=== PATIENT | female | born 1935 | race Two or more races ===

== ENCOUNTER 2016-02-29 10:20 | Emergency (ER) | payer MEDICARE, MEDICAID ==
[~2016-02-29] VITALS: Ht 160 cm; Wt 61.2 kg
[~2016-02-29 10:20] MED LIST: AMO250C PO; HYDR25TA4 PO; LISI-646 PO; NOR5T PO
[2016-02-29 11:52] LABS: Basophils # (auto) 0 uL; Basophils % (auto) 0.8 % (0.0-2.0); Eosinophils # (auto) 0.2 uL; Hematocrit 36.3 % (36.0-46.0); Lymphocytes % (auto) 36.9 % (10.0-50.0); Mean Corpuscular Hemoglobin 30.3 pg (28.0-32.0); Mean Corpuscular Hgb Conc. 33.1 g/dL (32.0-36.0); Mean Corpuscular Volume 91.7 fL (80.0-100.0); Mean Platelet Volume 8.2 fL (7.4-10.4); Monocytes # (auto) 0.5 uL; Monocytes % (auto) 8.1 % (0.0-12.0); Neutrophils # (auto) 2.8 uL; Neutrophils % (auto) 51.2 % (37.0-80.0); Platelet Count (auto) 236 10^3/uL (140-450); Red Cell Distribution Width 14.9 % (11.6-16.0); White Blood Cell 5.6 10^3/uL (4.4-10.8)
[2016-02-29 12:12] LABS: Albumin 4.4 g/dL (3.4-5.0); BUN/Creatinine Ratio 19.1; Bilirubin, Total 0.5 mg/dL (0.2-1.0); Calcium 8.8 mg/dL (8.5-10.1); Potassium 4.3 mmol/L (3.5-5.1); Total Protein 7.2 g/dL (6.4-8.2)
[2016-02-29 14:59] VITALS: BP 171/80
[2016-02-29] MEDS ORDERED: FAMO-12 PO (15:01)
[2016-02-29] MEDS ORDERED: FLUO-125 PO (15:02)
[2016-02-29] MEDS ORDERED: LOSA100T27 PO (15:02)
[2016-02-29] MEDS ORDERED: CLON0.1T PO (15:03)
[2016-02-29] MEDS ORDERED: HYDR25TA4 PO (15:03)
[2016-02-29] MEDS ORDERED: AMLO5TAB2 PO (15:04)
[2016-02-29] MEDS ORDERED: LEVO112T4 PO (15:04)
[2016-02-29 15:10] LABS: Urine Bilirubin Negative (Negative); Urine Blood Negative /uL (Negative); Urine Color Colorless (Yellow); Urine Glucose Normal (Normal); Urine Ketone Negative (Negative); Urine Nitrite Negative (Negative); Urine RBC 1 /hpf (0 - 4); Urine Urobilinogen Normal (Negative); Urine pH 6.5 (5.0-8.0)
[2016-02-29] MEDS ORDERED: cloNIDine HCL 0.1 MG TAB PO ONE (15:15)
== END 2016-02-29 16:25 | disposition home or self-care (01) ==
LOC: ER 10:20
DX: S50.01XA Contusion of right elbow, initial encounter (principal); S40.011A Contusion of right shoulder, initial encounter; S20.219A Contusion of unspecified front wall of thorax, initial encounter; I10 Essential (primary) hypertension; E07.9 Disorder of thyroid, unspecified; F32.9 Major depressive disorder, single episode, unspecified; R04.0 Epistaxis; W18.39XA Other fall on same level, initial encounter; Y93.89 Activity, other specified; Y92.89 Other specified places as the place of occurrence of the external cause; Y99.8 Other external cause status
CPT/HCPCS: 36415; 70450; 71010; 73070; 74176; 80053; 81001; 85025; 93005; 94761

== ENCOUNTER 2017-06-25 13:29 | Inpatient (IN) | payer MEDICARE, MEDICAID ==
[~2017-06-25] VITALS: Ht 162.6 cm; Wt 71.2 kg
[~2017-06-25 13:29] MED LIST changes: +AMLO5TAB2 PO; -AMO250C PO; +CLON0.1T PO; +FAMO-12 PO; +FLUO-125 PO; +LEVO112T4 PO; -LISI-646 PO; +LOSA100T27 PO; -NOR5T PO
[2017-06-25] MEDS ORDERED: SODIUM CHLORIDE 0.9% 1,000 ML IV ONE (14:38)
[2017-06-25 14:39] LABS: Basophils # (auto) 0.1 uL; Basophils % (auto) 0.9 % (0.0-2.0); Eosinophils # (auto) 0.1 uL; Eosinophils % (auto) 0.8 % (0.0-7.0); Hematocrit 39.7 % (36.0-46.0); Hemoglobin 13.1 g/dL (12.2-16.2); Lymphocytes # (auto) 2.8 uL; Lymphocytes % (auto) 35.8 % (10.0-50.0); Mean Corpuscular Hemoglobin 30.1 pg (28.0-32.0); Mean Corpuscular Hgb Conc. 33.1 g/dL (32.0-36.0); Mean Corpuscular Volume 91.1 fL (80.0-100.0); Monocytes # (auto) 0.8 uL; Monocytes % (auto) 9.6 % (0.0-12.0); Neutrophils # (auto) 4.1 uL; Neutrophils % (auto) 52.9 % (37.0-80.0); Nucleated Red Blood Cells % 0.1 %; Platelet Count (auto) 233 10^3/uL (140-450); Red Blood Cells 4.35 10^6/uL (4.0-5.20); Red Cell Distribution Width 14.6 % (11.8-14.3); White Blood Cell 7.8 10^3/uL (4.4-10.8)
[2017-06-25] MEDS ORDERED: LABETALOL HCL 5 MG/ML ML 20ML VIAL IV ONE ×2 (14:40→14:45)
[2017-06-25] MEDS ORDERED: ONDANSETRON HCL 4 MG/2 ML VIAL IV ONE ×2 (14:45→16:00)
[2017-06-25 14:58] LABS: Albumin 4.7 g/dL (3.4-5.0); BUN/Creatinine Ratio 15.4; Bilirubin, Total 0.5 mg/dL (0.2-1.0); Calcium 9.2 mg/dL (8.5-10.1); Potassium 4.4 mmol/L (3.5-5.1); Total Protein 8.3 g/dL (6.4-8.2)
[2017-06-25 15:58] LABS: Urine Bacteria NONE SEEN /hpf (None Seen); Urine Blood TRACE /uL (Negative); Urine Hyaline Cast FEW /lpf (0 - 2); Urine Specific Gravity 1.011 (1.001-1.035); Urine WBC 18 /hpf (0 - 5)
[2017-06-25] MEDS ORDERED: MORPHINE SULFATE 8mg/ml INJ SDV IV ONE (16:00)
[2017-06-25 16:15] LABS: Amylase 57 U/L (25-115); Lipase 181 U/L (73-393)
[2017-06-25] MEDS ORDERED: LORazepam 0.5 MG TAB PO PRN (16:30)
[2017-06-25] MEDS ORDERED: LABETALOL HCL 5 MG/ML ML 20ML VIAL IV PRN (16:30)
[2017-06-25] MEDS ORDERED: NITROGLYCERIN 0.4 MG SL TAB SL PRN (16:30)
[2017-06-25] MEDS ORDERED: cefTRIAXone 1GM/10ml IVPUSH 10 ML IV ONE (16:30)
[2017-06-25] MEDS ORDERED: MORPHINE SULFATE 8mg/ml INJ SDV IV PRN ×2 (16:30)
[2017-06-25] MEDS: SODIUM CHLORIDE 0.9% 1,000 ML IV SCH (17:11)
[2017-06-25] MEDS ORDERED: diphenhdrAMINE HCL 50 MG/1 ML VL ONE (18:13)
[2017-06-25] MEDS ORDERED: diphenhdrAMINE HCL 50 MG/1 ML VL IV ONE (18:15)
[2017-06-25] MEDS ORDERED: VALE530C2 PO (18:56)
[2017-06-25] MEDS ORDERED: CLON0.1T PO (18:56)
[2017-06-25] MEDS ORDERED: ASPI81TA27 PO (18:56)
[2017-06-25] MEDS ORDERED: RANITAB32 PO (18:56)
[2017-06-25] MEDS ORDERED: ATOR10TA PO (18:56)
[2017-06-25] MEDS ORDERED: CHOL20007 PO (18:56)
[2017-06-25] MEDS ORDERED: MONT10TA34 PO (18:56)
[2017-06-25] MEDS: LOSARTAN POTASSIUM 50 MG TAB PO SCH (21:40)
[2017-06-25] MEDS: amLODIPine BESYLATE 5 MG TAB PO SCH (21:40)
[2017-06-25] MEDS: FLUoxetine HCL 20 MG CAP PO SCH (21:41)
[2017-06-25] MEDS: TEMAZEPAM 15 MG CAP PO PRN (21:49)
[2017-06-25 21:51] VITALS: BP 146/73
[2017-06-25] MEDS: HCTZ 25 MG TAB PO SCH (22:00)
[2017-06-25] MEDS: cloNIDine HCL 0.1 MG TAB PO SCH (22:00)
[2017-06-26] MEDS: SODIUM CHLORIDE 0.9% 1,000 ML IV SCH ×2 (03:48→15:02)
[2017-06-26 05:00] VITALS: BP 150/69
[2017-06-26] MEDS: LEVOTHYROXINE SODIUM 112 MCG TAB PO SCH (06:54)
[2017-06-26 06:56] LABS: Albumin 3.7 g/dL (3.4-5.0); Calcium 8.6 mg/dL (8.5-10.1)
[2017-06-26 06:59] LABS: BUN/Creatinine Ratio 17.7
[2017-06-26 07:02] LABS: Bilirubin, Total 0.4 mg/dL (0.2-1.0)
[2017-06-26 09:00] VITALS: BP 159/70
[2017-06-26] MEDS ORDERED: cefTRIAXone 1GM/10ml IVPUSH 10 ML IV SCH (09:00)
[2017-06-26] MEDS: LOSARTAN POTASSIUM 50 MG TAB PO SCH (09:27)
[2017-06-26] MEDS: cloNIDine HCL 0.1 MG TAB PO SCH ×2 (09:28→22:00)
[2017-06-26] MEDS: amLODIPine BESYLATE 5 MG TAB PO SCH ×2 (09:28→22:01)
[2017-06-26] MEDS: FLUoxetine HCL 20 MG CAP PO SCH ×2 (09:28→21:59)
[2017-06-26] MEDS: hydrOXYzine HCL 10 MG TAB PO PRN ×2 (09:29→18:51)
[2017-06-26] MEDS: HCTZ 25 MG TAB PO SCH (09:30)
[2017-06-26] MEDS ORDERED: PANTOPRAZOLE 40 MG TAB PO SCH (10:00)
[2017-06-26] MEDS: HYDROcodone-ACET 5/325MG TAB PO PRN ×2 (12:01→18:51)
[2017-06-26] MEDS ORDERED: LACTULOSE 20Gm/30ML SOLN PO ONE (12:45)
[2017-06-26] MEDS ORDERED: LEVOFLOXACIN 500MG 100 ML IV ONE (14:15)
[2017-06-26 17:00] VITALS: BP 126/65
[2017-06-26] MEDS: SIMETHICONE 40 MG/0.6 ML ORAL DROP PO SCH ×2 (18:45→22:03)
[2017-06-26] MEDS: PANTOPRAZOLE 40 MG TAB PO SCH (21:59)
[2017-06-26] MEDS: LACTULOSE 20Gm/30ML SOLN PO SCH (21:59)
[2017-06-26 22:00] VITALS: BP 132/77
[2017-06-26] MEDS: TEMAZEPAM 15 MG CAP PO PRN (22:26)
[2017-06-27] MEDS: SODIUM CHLORIDE 0.9% 1,000 ML IV SCH ×2 (04:05→16:39)
[2017-06-27 05:00] VITALS: BP 148/86
[2017-06-27] MEDS: LEVOTHYROXINE SODIUM 112 MCG TAB PO SCH (06:03)
[2017-06-27] MEDS: SIMETHICONE 40 MG/0.6 ML ORAL DROP PO SCH ×4 (06:03→21:52)
[2017-06-27] MEDS: HYDROcodone-ACET 5/325MG TAB PO PRN ×3 (06:03→18:41)
[2017-06-27 06:10] LABS: Calcium 8.2 mg/dL (8.5-10.1); Potassium 4.4 mmol/L (3.5-5.1)
[2017-06-27 06:13] LABS: BUN/Creatinine Ratio 15.1
[2017-06-27 09:00] VITALS: BP 168/75
[2017-06-27] MEDS: LEVOFLOXACIN 500MG 100 ML IV SCH (10:15)
[2017-06-27] MEDS: LACTULOSE 20Gm/30ML SOLN PO SCH ×2 (10:17→21:53)
[2017-06-27] MEDS: FLUoxetine HCL 20 MG CAP PO SCH ×2 (10:17→21:51)
[2017-06-27] MEDS: amLODIPine BESYLATE 5 MG TAB PO SCH ×2 (10:18→21:52)
[2017-06-27] MEDS: cloNIDine HCL 0.1 MG TAB PO SCH ×2 (10:18→21:52)
[2017-06-27] MEDS: PANTOPRAZOLE 40 MG TAB PO SCH (10:19)
[2017-06-27] MEDS: PROMETHAZINE HCL 25 MG/ML 1ML IV PRN (12:42)
[2017-06-27 13:00] VITALS: BP 125/53
[2017-06-27 17:31] VITALS: BP 138/71
[2017-06-27] MEDS: TEMAZEPAM 15 MG CAP PO PRN (21:54)
[2017-06-27 23:48] VITALS: BP 142/55
[2017-06-28] VITALS (7 sets, daily range): BP systolic 130–162; BP diastolic 49–68
[2017-06-28] MEDS: SODIUM CHLORIDE 0.9% 1,000 ML IV SCH ×2 (05:05→17:50)
[2017-06-28] MEDS: SIMETHICONE 40 MG/0.6 ML ORAL DROP PO SCH ×4 (06:13→21:44)
[2017-06-28] MEDS: LEVOTHYROXINE SODIUM 112 MCG TAB PO SCH (06:13)
[2017-06-28 07:05] LABS: Basophils # (auto) 0 uL; Basophils % (auto) 0.9 % (0.0-2.0); Eosinophils # (auto) 0.2 uL; Eosinophils % (auto) 3.7 % (0.0-7.0); Hematocrit 34.3 % (36.0-46.0); Hemoglobin 11.4 g/dL (12.2-16.2); Lymphocytes # (auto) 1.5 uL; Lymphocytes % (auto) 32.3 % (10.0-50.0); Mean Corpuscular Hemoglobin 30.4 pg (28.0-32.0); Mean Corpuscular Hgb Conc. 33.2 g/dL (32.0-36.0); Mean Corpuscular Volume 91.5 fL (80.0-100.0); Monocytes # (auto) 0.5 uL; Neutrophils # (auto) 2.5 uL; Neutrophils % (auto) 53.1 % (37.0-80.0); Nucleated Red Blood Cells % 0.2 %; Platelet Count (auto) 189 10^3/uL (140-450); Red Blood Cells 3.75 10^6/uL (4.0-5.20); Red Cell Distribution Width 14.5 % (11.8-14.3); White Blood Cell 4.7 10^3/uL (4.4-10.8)
[2017-06-28 07:22] LABS: Albumin 3.4 g/dL (3.4-5.0); BUN/Creatinine Ratio 17.1; Bilirubin, Total 0.3 mg/dL (0.2-1.0); Calcium 8.6 mg/dL (8.5-10.1); Potassium 3.9 mmol/L (3.5-5.1); Total Protein 6.7 g/dL (6.4-8.2)
[2017-06-28] MEDS: HYDROcodone-ACET 5/325MG TAB PO PRN ×2 (08:04→14:31)
[2017-06-28] MEDS: amLODIPine BESYLATE 5 MG TAB PO SCH ×2 (09:34→21:43)
[2017-06-28] MEDS: cloNIDine HCL 0.1 MG TAB PO SCH ×2 (09:35→21:43)
[2017-06-28] MEDS: PANTOPRAZOLE 40 MG/10 ML VIAL IV SCH (09:35)
[2017-06-28] MEDS: LACTULOSE 20Gm/30ML SOLN PO SCH (09:35)
[2017-06-28] MEDS: FLUoxetine HCL 20 MG CAP PO SCH ×2 (09:35→21:43)
[2017-06-28] MEDS: LEVOFLOXACIN 500MG 100 ML IV SCH (09:36)
[2017-06-28 19:47] LABS: INR 0.95 (0.9-1.15); Partial Thromboplastin Time 26.9 sec (22.64-33.71); Prothrombin Time 10.3 sec (9.37-12.3)
[2017-06-28] MEDS: TEMAZEPAM 15 MG CAP PO PRN (21:48)
[2017-06-29] MEDS: SIMETHICONE 40 MG/0.6 ML ORAL DROP PO SCH ×4 (06:00→21:48)
[2017-06-29 06:01] VITALS: BP 124/56
[2017-06-29] MEDS: LEVOTHYROXINE SODIUM 112 MCG TAB PO SCH (06:48)
[2017-06-29 07:00] LABS: Basophils # (auto) 0 uL; Basophils % (auto) 1.1 % (0.0-2.0); Eosinophils # (auto) 0.2 uL; Eosinophils % (auto) 4.1 % (0.0-7.0); Hematocrit 32.7 % (36.0-46.0); Hemoglobin 11.2 g/dL (12.2-16.2); Lymphocytes # (auto) 1.5 uL; Lymphocytes % (auto) 35.2 % (10.0-50.0); Mean Corpuscular Hemoglobin 30.7 pg (28.0-32.0); Mean Corpuscular Hgb Conc. 34.2 g/dL (32.0-36.0); Monocytes # (auto) 0.5 uL; Monocytes % (auto) 10.6 % (0.0-12.0); Neutrophils # (auto) 2.1 uL; Nucleated Red Blood Cells % 0.1 %; Platelet Count (auto) 195 10^3/uL (140-450); Red Blood Cells 3.63 10^6/uL (4.0-5.20); White Blood Cell 4.3 10^3/uL (4.4-10.8)
[2017-06-29 07:05] LABS: BUN/Creatinine Ratio 21.2; Calcium 8.9 mg/dL (8.5-10.1); Potassium 3.9 mmol/L (3.5-5.1)
[2017-06-29] MEDS ORDERED: fentaNYL CITRATE 100 MCG/2 ML VL ONE (08:34)
[2017-06-29] MEDS ORDERED: diphenhdrAMINE HCL 50 MG/1 ML VL ONE (08:34)
[2017-06-29] MEDS ORDERED: MIDAZOLAM HCL 5 MG/ML-1ML VIAL ONE (08:34)
[2017-06-29] MEDS ORDERED: LIDOCAINE VISCOUS 2% 15ML UD ONE (08:34)
[2017-06-29 09:00] VITALS: BP 152/68
[2017-06-29] MEDS: FLUoxetine HCL 20 MG CAP PO SCH ×2 (10:00→21:46)
[2017-06-29] MEDS: cloNIDine HCL 0.1 MG TAB PO SCH ×2 (10:29→21:48)
[2017-06-29] MEDS: PANTOPRAZOLE 40 MG/10 ML VIAL IV SCH (10:30)
[2017-06-29] MEDS: SODIUM CHLORIDE 0.9% 1,000 ML IV SCH ×2 (10:30→21:48)
[2017-06-29] MEDS: amLODIPine BESYLATE 5 MG TAB PO SCH ×2 (10:30→21:47)
[2017-06-29] MEDS ORDERED: AMPICILLIN INJ 1 GM in SODIUM CHL 0.9% 50 ML IV SCH (12:00)
[2017-06-29 13:00] VITALS: BP 138/71
[2017-06-29] MEDS: AMPICILLIN INJ 1 GM in SODIUM CHL 0.9% 50 ML IV SCH ×2 (14:59→22:42)
[2017-06-29] MEDS ORDERED: LACTULOSE 20Gm/30ML SOLN PO ONE (15:30)
[2017-06-29 17:00] VITALS: BP 138/80
[2017-06-29] MEDS: LACTULOSE 20Gm/30ML SOLN PO SCH (21:48)
[2017-06-29] MEDS: TEMAZEPAM 15 MG CAP PO PRN (21:49)
[2017-06-29 22:00] VITALS: BP 167/32
[2017-06-29] MEDS ORDERED: BISACODYL 10 MG RECT SUPP PR PRN (22:00)
[2017-06-30] MEDS: AMPICILLIN INJ 1 GM in SODIUM CHL 0.9% 50 ML IV SCH ×4 (02:45→20:40)
[2017-06-30 05:30] VITALS: BP 145/60
[2017-06-30] MEDS: SIMETHICONE 40 MG/0.6 ML ORAL DROP PO SCH ×4 (05:44→21:42)
[2017-06-30] MEDS: LEVOTHYROXINE SODIUM 112 MCG TAB PO SCH (05:45)
[2017-06-30 09:00] VITALS: BP 147/90
[2017-06-30] MEDS: LACTULOSE 20Gm/30ML SOLN PO SCH ×2 (09:03→17:09)
[2017-06-30] MEDS: FLUoxetine HCL 20 MG CAP PO SCH (09:03)
[2017-06-30] MEDS: cloNIDine HCL 0.1 MG TAB PO SCH ×2 (09:04→21:43)
[2017-06-30] MEDS: PANTOPRAZOLE 40 MG/10 ML VIAL IV SCH (09:05)
[2017-06-30] MEDS: amLODIPine BESYLATE 5 MG TAB PO SCH ×2 (09:05→21:42)
[2017-06-30] MEDS: PROMETHAZINE HCL 25 MG/ML 1ML IV PRN (11:20)
[2017-06-30 12:00] VITALS: BP 149/91
[2017-06-30 17:00] VITALS: BP 159/74
[2017-06-30] MEDS: TEMAZEPAM 15 MG CAP PO PRN (21:42)
[2017-06-30 22:00] VITALS: BP 144/78
[2017-07-01] MEDS: LACTULOSE 20Gm/30ML SOLN PO SCH ×3 (02:00→17:09)
[2017-07-01] MEDS: AMPICILLIN INJ 1 GM in SODIUM CHL 0.9% 50 ML IV SCH ×4 (03:22→21:07)
[2017-07-01 05:30] VITALS: BP 141/64
[2017-07-01] MEDS: SIMETHICONE 40 MG/0.6 ML ORAL DROP PO SCH ×4 (06:31→21:20)
[2017-07-01] MEDS: LEVOTHYROXINE SODIUM 112 MCG TAB PO SCH (06:31)
[2017-07-01 08:53] VITALS: BP 166/61
[2017-07-01] MEDS ORDERED: MAGNESIUM CITRATE SOLUTION 300 ML BTL PO ONE (09:15)
[2017-07-01] MEDS: ACETAMINOPHEN 500 MG TAB PO PRN ×2 (09:45→21:07)
[2017-07-01] MEDS: cloNIDine HCL 0.1 MG TAB PO SCH ×2 (09:45→21:21)
[2017-07-01] MEDS: amLODIPine BESYLATE 5 MG TAB PO SCH ×2 (09:46→21:21)
[2017-07-01] MEDS: FLUoxetine HCL 20 MG CAP PO SCH (09:47)
[2017-07-01] MEDS ORDERED: PANTOPRAZOLE 40 MG TAB PO SCH (10:00)
[2017-07-01] MEDS: PROMETHAZINE HCL 25 MG/ML 1ML IV PRN (12:08)
[2017-07-01 12:41] VITALS: BP 133/76
[2017-07-01 17:00] VITALS: BP 152/54
[2017-07-01] MEDS: SUCRALFATE 1 GM/10 ML ORAL SUSP PO SCH ×2 (17:08→21:20)
[2017-07-01] MEDS: PANTOPRAZOLE 40 MG TAB PO SCH (21:21)
[2017-07-01] MEDS: TEMAZEPAM 15 MG CAP PO PRN (21:22)
[2017-07-01 22:00] VITALS: BP 142/60
[2017-07-02] MEDS: LACTULOSE 20Gm/30ML SOLN PO SCH ×3 (02:00→18:00)
[2017-07-02] MEDS: AMPICILLIN INJ 1 GM in SODIUM CHL 0.9% 50 ML IV SCH ×4 (02:46→23:32)
[2017-07-02 05:41] VITALS: BP 145/70
[2017-07-02] MEDS: SIMETHICONE 40 MG/0.6 ML ORAL DROP PO SCH ×2 (06:00→11:04)
[2017-07-02] MEDS: LEVOTHYROXINE SODIUM 112 MCG TAB PO SCH (06:11)
[2017-07-02] MEDS: SUCRALFATE 1 GM/10 ML ORAL SUSP PO SCH ×2 (07:00→11:03)
[2017-07-02] MEDS ORDERED: ADENOSINE 6 MG/2 ML INJ IV ONE (07:10)
[2017-07-02] MEDS: FLUoxetine HCL 20 MG CAP PO SCH (11:02)
[2017-07-02] MEDS: cloNIDine HCL 0.1 MG TAB PO SCH ×2 (11:02→22:39)
[2017-07-02] MEDS: PANTOPRAZOLE 40 MG TAB PO SCH (11:02)
[2017-07-02] MEDS: amLODIPine BESYLATE 5 MG TAB PO SCH ×2 (11:02→22:40)
[2017-07-02] MEDS: PROMETHAZINE HCL 25 MG/ML 1ML IV PRN (11:30)
[2017-07-02 13:00] VITALS: BP 153/50
[2017-07-02] MEDS: SOD CHL 0.9%/ KCL 20MEQ 1,000 ML IV SCH (14:25)
[2017-07-02] MEDS: traMADol HCL 50 MG TAB PO PRN ×2 (14:32→22:39)
[2017-07-02 17:00] VITALS: BP 133/59
[2017-07-02 22:00] VITALS: BP 124/82
[2017-07-02] MEDS: TEMAZEPAM 15 MG CAP PO PRN (22:40)
[2017-07-02 23:32] VITALS: BP 134/62
[2017-07-02 23:47] VITALS: BP 129/55
[2017-07-03] MEDS: LACTULOSE 20Gm/30ML SOLN PO SCH ×3 (02:00→18:00)
[2017-07-03] MEDS: AMPICILLIN INJ 1 GM in SODIUM CHL 0.9% 50 ML IV SCH ×4 (03:00→21:45)
[2017-07-03 05:30] VITALS: BP 140/71
[2017-07-03] MEDS: LEVOTHYROXINE SODIUM 112 MCG TAB PO SCH (06:17)
[2017-07-03 06:20] LABS: INR 0.95 (0.9-1.15); Partial Thromboplastin Time 26.5 sec (22.64-33.71); Prothrombin Time 10.3 sec (9.37-12.3)
[2017-07-03 06:28] LABS: Basophils # (auto) 0 uL; Basophils % (auto) 0.9 % (0.0-2.0); Eosinophils # (auto) 0.2 uL; Hematocrit 31.9 % (36.0-46.0); Hemoglobin 10.9 g/dL (12.2-16.2); Lymphocytes # (auto) 1.6 uL; Lymphocytes % (auto) 39.3 % (10.0-50.0); Mean Corpuscular Hemoglobin 30.8 pg (28.0-32.0); Mean Corpuscular Hgb Conc. 34.1 g/dL (32.0-36.0); Mean Corpuscular Volume 90.5 fL (80.0-100.0); Monocytes # (auto) 0.5 uL; Monocytes % (auto) 12.2 % (0.0-12.0); Neutrophils # (auto) 1.8 uL; Neutrophils % (auto) 43.6 % (37.0-80.0); Platelet Count (auto) 194 10^3/uL (140-450); Red Blood Cells 3.53 10^6/uL (4.0-5.20); Red Cell Distribution Width 14.2 % (11.8-14.3); White Blood Cell 4.1 10^3/uL (4.4-10.8)
[2017-07-03 06:40] LABS: Albumin 3.1 g/dL (3.4-5.0); BUN/Creatinine Ratio 17.8; Calcium 8.6 mg/dL (8.5-10.1); Potassium 4.3 mmol/L (3.5-5.1)
[2017-07-03 06:52] LABS: Bilirubin, Total 0.3 mg/dL (0.2-1.0); Total Protein 6.4 g/dL (6.4-8.2)
[2017-07-03] MEDS: SOD CHL 0.9%/ KCL 20MEQ 1,000 ML IV SCH (08:42)
[2017-07-03 09:00] VITALS: BP 125/64
[2017-07-03] MEDS: cloNIDine HCL 0.1 MG TAB PO SCH ×2 (09:49→21:46)
[2017-07-03] MEDS: amLODIPine BESYLATE 5 MG TAB PO SCH ×2 (09:49→21:47)
[2017-07-03] MEDS: PANTOPRAZOLE 40 MG TAB PO SCH (09:50)
[2017-07-03] MEDS: FLUoxetine HCL 20 MG CAP PO SCH (09:50)
[2017-07-03 12:55] VITALS: BP 146/59
[2017-07-03] MEDS ORDERED: LABETALOL HCL 5 MG/ML ML 20ML VIAL IV PRN (13:50)
[2017-07-03] MEDS ORDERED: NEOSTIGMINE 1 MG/ML INJ (10mg/10ML VIAL) IV ONE (13:55)
[2017-07-03] MEDS ORDERED: ETOMIDATE (2MG/ML) 20ML VIAL IV ONE (13:55)
[2017-07-03] MEDS ORDERED: ROCURONIUM 10MG/ML 10ML VIAL IV ONE (13:55)
[2017-07-03] MEDS ORDERED: GLYCOPYRROLATE 0.2 MG/ML 1ML VIAL IV ONE (13:55)
[2017-07-03] MEDS ORDERED: LEVOFLOXACIN 500MG 100 ML IV ONE (14:01)
[2017-07-03] MEDS ORDERED: MEPERIDINE HCL (50 MG/ML) 1 ML VIAL ONE (14:05)
[2017-07-03] MEDS ORDERED: MIDAZOLAM HCL 1MG/1ML-2 ML VIAL ONE (14:05)
[2017-07-03] MEDS ORDERED: fentaNYL CITRATE 100 MCG/2 ML VL ONE (14:05)
[2017-07-03] MEDS ORDERED: PROPOFOL 10 MG/ML 20 ML IV ONE (14:10)
[2017-07-03] MEDS ORDERED: DEXAMETHASONE SOD PHOS 10MG/1ML VIAL INJ ONE (14:10)
[2017-07-03] MEDS ORDERED: ePHEDrine SULFATE 50 MG/ML AMP IV PRN (14:30)
[2017-07-03] MEDS ORDERED: MORPHINE SULFATE 4 MG/ML SYR/VIAL IV PRN (14:30)
[2017-07-03] MEDS ORDERED: ONDANSETRON HCL 4 MG/2 ML VIAL IV ONE (14:30)
[2017-07-03] MEDS ORDERED: KETOROLAC TROMETH 30 MG/ML 1ML VIAL IV ONE (14:30)
[2017-07-03] MEDS ORDERED: HYDROmorphone HCL 2 MG/ML VL IV PRN (14:30)
[2017-07-03] MEDS ORDERED: MIDAZOLAM HCL 1MG/1ML-2 ML VIAL IV PRN (14:30)
[2017-07-03] MEDS: LABETALOL HCL 5 MG/ML 4ML SYRINGE IV PRN ×2 (15:52→15:59)
[2017-07-03] MEDS ORDERED: MORPHINE SULFATE 4 MG/ML SYR/VIAL IV ONE (16:00)
[2017-07-03] MEDS ORDERED: ONDANSETRON HCL 4 MG/2 ML VIAL ONE (16:30)
[2017-07-03 17:20] VITALS: BP 133/68
[2017-07-03] MEDS: traMADol HCL 50 MG TAB PO PRN (19:41)
[2017-07-03] MEDS: TEMAZEPAM 15 MG CAP PO PRN (21:47)
[2017-07-03 22:00] VITALS: BP 124/60
[2017-07-04] MEDS: LACTULOSE 20Gm/30ML SOLN PO SCH ×3 (03:21→17:50)
[2017-07-04] MEDS: AMPICILLIN INJ 1 GM in SODIUM CHL 0.9% 50 ML IV SCH ×4 (03:22→21:50)
[2017-07-04] MEDS: SOD CHL 0.9%/ KCL 20MEQ 1,000 ML IV SCH ×2 (03:23→23:30)
[2017-07-04 05:00] VITALS: BP 119/53
[2017-07-04] MEDS: LEVOTHYROXINE SODIUM 112 MCG TAB PO SCH (06:57)
[2017-07-04 08:03] VITALS: BP 123/50
[2017-07-04] MEDS: FLUoxetine HCL 20 MG CAP PO SCH (09:21)
[2017-07-04] MEDS: PANTOPRAZOLE 40 MG TAB PO SCH (09:21)
[2017-07-04] MEDS: traMADol HCL 50 MG TAB PO PRN ×3 (09:21→21:50)
[2017-07-04] MEDS: cloNIDine HCL 0.1 MG TAB PO SCH ×3 (10:00→21:53)
[2017-07-04] MEDS ORDERED: TEMAZEPAM 15 MG CAP PO PRN (10:30)
[2017-07-04] MEDS ORDERED: LORazepam 0.5 MG TAB PO PRN (10:30)
[2017-07-04 12:57] VITALS: BP 117/56
[2017-07-04 17:06] VITALS: BP 146/67
[2017-07-04 22:00] VITALS: BP 146/69
[2017-07-05] MEDS: LACTULOSE 20Gm/30ML SOLN PO SCH ×2 (01:38→10:31)
[2017-07-05] MEDS: AMPICILLIN INJ 1 GM in SODIUM CHL 0.9% 50 ML IV SCH ×2 (03:01→10:33)
[2017-07-05 05:00] VITALS: BP 159/69
[2017-07-05] MEDS: LEVOTHYROXINE SODIUM 112 MCG TAB PO SCH (06:44)
[2017-07-05 07:12] LABS: Basophils # (auto) 0 uL; Basophils % (auto) 0.1 % (0.0-2.0); Eosinophils # (auto) 0 uL; Hematocrit 29.7 % (36.0-46.0); Hemoglobin 10.2 g/dL (12.2-16.2); Lymphocytes # (auto) 1.1 uL; Lymphocytes % (auto) 10.5 % (10.0-50.0); Mean Corpuscular Hemoglobin 30.9 pg (28.0-32.0); Mean Corpuscular Hgb Conc. 34.2 g/dL (32.0-36.0); Mean Corpuscular Volume 90.5 fL (80.0-100.0); Monocytes # (auto) 0.7 uL; Monocytes % (auto) 6.5 % (0.0-12.0); Neutrophils # (auto) 8.7 uL; Neutrophils % (auto) 82.9 % (37.0-80.0); Platelet Count (auto) 179 10^3/uL (140-450); Red Blood Cells 3.29 10^6/uL (4.0-5.20); Red Cell Distribution Width 14.6 % (11.8-14.3); White Blood Cell 10.5 10^3/uL (4.4-10.8)
[2017-07-05 07:23] LABS: BUN/Creatinine Ratio 21.4; Calcium 8.4 mg/dL (8.5-10.1); Potassium 4.6 mmol/L (3.5-5.1)
[2017-07-05 09:00] VITALS: BP 164/73
[2017-07-05] MEDS ORDERED: amLODIPine BESYLATE 5 MG TAB PO SCH (10:00)
[2017-07-05] MEDS ORDERED: AML5T PO (10:23)
[2017-07-05] MEDS ORDERED: PANT40T PO (10:23)
[2017-07-05] MEDS: FLUoxetine HCL 20 MG CAP PO SCH (10:31)
[2017-07-05] MEDS: PANTOPRAZOLE 40 MG TAB PO SCH (10:32)
[2017-07-05] MEDS: cloNIDine HCL 0.1 MG TAB PO SCH (10:32)
[2017-07-05 10:59] VITALS: BP 164/73
[2017-07-05] MEDS: ACETAMINOPHEN 500 MG TAB PO PRN (11:45)
[2017-07-05 12:38] VITALS: BP 179/72
== END 2017-07-05 15:55 | disposition home or self-care (01) | DRG 263 ==
LOC: ER 13:30 → TELE-WESTW 13:31 → WEST WING 06-30 12:16
PROVIDERS: ADMIT Internal Medicine; ATTEND Internal Medicine
PROC: 0DB68ZX Excision of Stomach, Via Natural or Artificial Opening Endoscopic, Diagnostic (ICD-10-PCS; principal; 2017-06-29 12:59)
PROC: 0FT44ZZ Resection of Gallbladder, Percutaneous Endoscopic Approach (ICD-10-PCS; 2017-07-03)
DX: K82.8 Other specified diseases of gallbladder (principal); N17.0 Acute kidney failure with tubular necrosis; K92.2 Gastrointestinal hemorrhage, unspecified; N39.0 Urinary tract infection, site not specified; K44.9 Diaphragmatic hernia without obstruction or gangrene; N18.3 Chronic kidney disease, stage 3 (moderate); K21.9 Gastro-esophageal reflux disease without esophagitis; K58.9 Irritable bowel syndrome, unspecified; B95.4 Other streptococcus as the cause of diseases classified elsewhere; E03.9 Hypothyroidism, unspecified; E78.5 Hyperlipidemia, unspecified; F32.9 Major depressive disorder, single episode, unspecified; I25.10 Atherosclerotic heart disease of native coronary artery without angina pectoris; E86.0 Dehydration; F41.9 Anxiety disorder, unspecified; I13.10 Hypertensive heart and chronic kidney disease without heart failure, with stage 1 through stage 4 chronic kidney disease, or unspecified chronic kidney disease; I45.10 Unspecified right bundle-branch block; I70.0 Atherosclerosis of aorta; J45.909 Unspecified asthma, uncomplicated; K81.1 Chronic cholecystitis; M51.37 Other intervertebral disc degeneration, lumbosacral region; Z79.899 Other long term (current) drug therapy; Z82.49 Family history of ischemic heart disease and other diseases of the circulatory system; Z86.73 Personal history of transient ischemic attack (TIA), and cerebral infarction without residual deficits; Z98.49 Cataract extraction status, unspecified eye; Z87.891 Personal history of nicotine dependence
CPT/HCPCS: 36415; 70450; 71045; 72125; 73560; 74176; 76705; 78226; 80048; 80053; 81001; 82150; 82247; 83690; 84443; 85025; 85610; 85730; 86850; 86900; 86901; 87086; 93005; 93306; 94761; 96361; 96374; 96375; C9113; J0153; J1100; J1956; J2250; J2270; J2405; J2704

== ENCOUNTER 2018-09-07 12:04 | Emergency (ER) | payer MEDICARE, MEDICAID ==
[~2018-09-07] VITALS: Ht 162.6 cm; Wt 61.7 kg
[~2018-09-07 12:04] MED LIST changes: +AML5T PO; -AMLO5TAB2 PO; +ASPI81TA27 PO; +ATOR10TA PO; +CHOL20007 PO; -FAMO-12 PO; -FLUO-125 PO; -HYDR25TA4 PO; -LOSA100T27 PO; +MONT10TA34 PO; +PANT40T PO; +VALE530C2 PO
[2018-09-07 12:57] VITALS: BP 183/67
[2018-09-07] MEDS ORDERED: Acetam/CODEINE 120mg/12mg per 5mL UD PO ONE (13:30)
== END 2018-09-07 14:59 | disposition home or self-care (01) ==
LOC: ER 12:29
DX: S13.4XXA Sprain of ligaments of cervical spine, initial encounter (principal); S40.011A Contusion of right shoulder, initial encounter; S80.02XA Contusion of left knee, initial encounter; J45.909 Unspecified asthma, uncomplicated; E78.5 Hyperlipidemia, unspecified; I10 Essential (primary) hypertension; E07.9 Disorder of thyroid, unspecified; Z88.1 Allergy status to other antibiotic agents; Z79.82 Long term (current) use of aspirin; Z79.899 Other long term (current) drug therapy; W01.198A Fall on same level from slipping, tripping and stumbling with subsequent striking against other object, initial encounter; Y93.89 Activity, other specified; Y99.8 Other external cause status; Y92.89 Other specified places as the place of occurrence of the external cause
CPT/HCPCS: 72040; 73030; 73562

== ENCOUNTER 2018-12-25 17:38 | Emergency (ER) | payer MEDICARE, MEDICAID ==
[~2018-12-25] VITALS: Ht 162.6 cm; Wt 66.2 kg
[~2018-12-25 17:38] MED LIST changes: +ASPI-404 PO; -ASPI81TA27 PO
[2018-12-25] MEDS ORDERED: ACETAMINOPHEN 325 MG TAB PO ONE (20:15)
[2018-12-25] MEDS ORDERED: ONDANSETRON HCL 4 MG/2 ML VIAL IV ONE (20:15)
[2018-12-25] MEDS ORDERED: TETANUS-DIPTH-ACEL PERTUSSIS 0.5ML SYRG IM ONE (20:15)
[2018-12-25] MEDS ORDERED: CLINDAMYCIN 600MG IV 50 ML IV ONE (21:00)
[2018-12-25 21:48] LABS: Urine Bacteria NONE SEEN /hpf (None Seen); Urine Blood TRACE /uL (Negative); Urine Specific Gravity 1.007 (1.001-1.035); Urine WBC 1 /hpf (0 - 5)
[2018-12-25 22:00] VITALS: BP 133/65
== END 2018-12-25 22:38 | disposition home or self-care (01) ==
LOC: ER 17:48
DX: S02.40DA Maxillary fracture, left side, initial encounter for closed fracture (principal); S02.2XXA Fracture of nasal bones, initial encounter for closed fracture; F32.9 Major depressive disorder, single episode, unspecified; E78.5 Hyperlipidemia, unspecified; I10 Essential (primary) hypertension; E07.9 Disorder of thyroid, unspecified; Z79.899 Other long term (current) drug therapy; Z88.1 Allergy status to other antibiotic agents; Z88.5 Allergy status to narcotic agent; W01.0XXA Fall on same level from slipping, tripping and stumbling without subsequent striking against object, initial encounter; Y93.89 Activity, other specified; Y92.480 Sidewalk as the place of occurrence of the external cause; Y99.8 Other external cause status
CPT/HCPCS: 70450; 70486; 71045; 72125; 74176; 81001; 90471; 90715; 93005; 96365; 96375; 99284; J2405; J3490

== ENCOUNTER 2019-09-16 09:56 | Emergency (ER) | payer MEDICARE, MEDICAID ==
[~2019-09-16] VITALS: Ht 160 cm; Wt 70.3 kg
[2019-09-16 10:28] LABS: Urine Bacteria NONE SEEN /hpf (None Seen); Urine Blood Negative /uL (Negative); Urine Mucus FEW (None Seen); Urine Specific Gravity 1.013 (1.001-1.035); Urine WBC 3 /hpf (0 - 5)
[2019-09-16 10:41] VITALS: BP 178/63
[2019-09-16 10:48] LABS: Basophils # (auto) 0.1 10 ^3/uL (0-0.2); Basophils % (auto) 1.1 % (0.0-2.0); Eosinophils # (auto) 0.1 10 ^3/uL (0-0.8); Eosinophils % (auto) 2.5 % (0.0-7.0); Hematocrit 38.1 % (36.0-46.0); Hemoglobin 12.7 g/dL (12.2-16.2); Lymphocytes # (auto) 1.5 10 ^3/uL (0.4-5.4); Lymphocytes % (auto) 26.1 % (10.0-50.0); Mean Corpuscular Hemoglobin 29.8 pg (28.0-32.0); Mean Corpuscular Hgb Conc. 33.5 g/dL (32.0-36.0); Mean Corpuscular Volume 89.2 fL (80.0-100.0); Monocytes # (auto) 0.5 10 ^3/uL (0-1.3); Monocytes % (auto) 9.4 % (0.0-12.0); Neutrophils # (auto) 3.4 10 ^3/uL (1.6-8.6); Neutrophils % (auto) 60.9 % (37.0-80.0); Platelet Count (auto) 214 10^3/uL (140-450); Red Blood Cells 4.27 10^6/uL (4.0-5.20); White Blood Cell 5.6 10^3/uL (4.4-10.8)
[2019-09-16 11:07] LABS: Potassium 4.4 mmol/L (3.5-5.1)
[2019-09-16 11:15] LABS: Albumin 3.8 g/dL (3.4-5.0); BUN/Creatinine Ratio 17.6; Bilirubin, Total 0.4 mg/dL (0.2-1.0); Calcium 8.9 mg/dL (8.5-10.1); Total Protein 7.4 g/dL (6.4-8.2)
== END 2019-09-16 11:50 | disposition home or self-care (01) ==
LOC: ER 09:59
DX: R04.0 Epistaxis (principal); I10 Essential (primary) hypertension; E78.5 Hyperlipidemia, unspecified; E07.9 Disorder of thyroid, unspecified
CPT/HCPCS: 30901; 36415; 80053; 81001; 85025

== ENCOUNTER 2020-07-26 08:17 | Inpatient (IN) | payer MEDICARE, MEDICAID ==
[~2020-07-26] VITALS: Ht 165.1 cm; Wt 73.6 kg
[~2020-07-26 08:17] MED LIST changes: -ASPI-404 PO; +ASPI-543 PO; -MONT10TA34 PO; +MONT10TA42 PO
[2020-07-26] MEDS ORDERED: ASPirin 81 mg TAB PO ONE (08:45)
[2020-07-26] MEDS ORDERED: SODIUM CHLORIDE 0.9% 1,000 ML IV ONE ×2 (08:45→11:15)
[2020-07-26 09:27] LABS: Basophils # (auto) 0.1 10 ^3/uL (0-0.2); Basophils % (auto) 1.6 % (0.0-2.0); Eosinophils # (auto) 0.2 10 ^3/uL (0-0.8); Eosinophils % (auto) 3.7 % (0.0-7.0); Hematocrit 37.3 % (36.0-46.0); Hemoglobin 12.7 g/dL (12.2-16.2); Lymphocytes # (auto) 1.6 10 ^3/uL (0.4-5.4); Mean Corpuscular Hemoglobin 30.4 pg (28.0-32.0); Mean Corpuscular Hgb Conc. 34.1 g/dL (32.0-36.0); Mean Corpuscular Volume 89.1 fL (80.0-100.0); Monocytes # (auto) 0.4 10 ^3/uL (0-1.3); Monocytes % (auto) 8.4 % (0.0-12.0); Neutrophils # (auto) 2.9 10 ^3/uL (1.6-8.6); Neutrophils % (auto) 55.3 % (37.0-80.0); Nucleated Red Blood Cells % 0.1 %; Red Blood Cells 4.18 10^6/uL (4.0-5.20); Red Cell Distribution Width 14.6 % (11.8-14.3); White Blood Cell 5.2 10^3/uL (4.4-10.8)
[2020-07-26 09:43] LABS: Albumin 3.9 g/dL (3.4-5.0); Anion Gap 6 (5-15); Blood Urea Nitrogen 28 mg/dL (7-18); Calcium 8.8 mg/dL (8.5-10.1); Carbon Dioxide 25 mmol/L (21-32); Chloride 107 mmol/L (98-107); Glucose 90 mg/dL (74-106); Magnesium 2.5 mg/dL (1.6-2.6); Potassium 4.4 mmol/L (3.5-5.1); Sodium 138 mmol/L (136-145)
[2020-07-26 09:48] LABS: Alanine Aminotransferase 19 U/L (13-56); Alkaline Phosphatase 57 U/L (45-117); Aspartate Aminotransferase 18 U/L (15-37); BUN/Creatinine Ratio 20.6; Bilirubin, Total 0.5 mg/dL (0.2-1.0); GFR African American 48 mL/min; GFR Non-African American 39 mL/min; Total Protein 7.5 g/dL (6.4-8.2)
[2020-07-26 10:00] LABS: Platelet Count (auto) 192 10^3/uL (140-450)
[2020-07-26] MEDS ORDERED: ONDANSETRON HCL 4 MG/2 ML VIAL IV PRN (11:00)
[2020-07-26] MEDS ORDERED: LACTULOSE 20Gm/30ML SOLN PO PRN (11:00)
[2020-07-26] MEDS ORDERED: NITROGLYCERIN 0.4 MG SL TAB SL PRN (11:00)
[2020-07-26] MEDS ORDERED: traMADol HCL 50 MG TAB PO PRN (11:00)
[2020-07-26 11:11] LABS: Partial Thromboplastin Time 25.6 sec (23.0-31.2)
[2020-07-26] MEDS ORDERED: hydrALAZINE HCL 20 MG/ML VL IV PRN (11:15)
[2020-07-26] MEDS ORDERED: ALBUTEROL SULF 2.5 MG/0.5ML(0.5%) NEB SOLN NEB PRN (11:15)
[2020-07-26] MEDS: traMADol HCL 50 MG TAB PO PRN ×2 (11:33→23:00)
[2020-07-26 12:06] VITALS: BP 129/54
[2020-07-26] MEDS: ALBUTEROL SULF 2.5 MG/0.5ML(0.5%) NEB SOLN NEB SCH ×2 (12:06→18:50)
[2020-07-26] MEDS: IPRATROPIUM BROM 0.5 MG/2.5ML INH SOL NEB SCH ×2 (12:06→18:50)
[2020-07-26 13:22] LABS: Urine Bacteria NONE SEEN /hpf (None Seen); Urine Blood Negative /uL (Negative); Urine WBC 1 /hpf (0 - 5)
[2020-07-26] MEDS: hydrALAZINE HCL 25 MG TAB PO SCH ×2 (14:17→22:00)
[2020-07-26] MEDS: cloNIDine HCL 0.1 MG TAB PO SCH ×2 (14:18→22:53)
[2020-07-26 17:41] VITALS: BP 154/71
[2020-07-26] MEDS ORDERED: FAMOTIDINE 20 MG TAB PO SCH (22:00)
[2020-07-26] MEDS: ATORVASTATIN 20 MG TAB PO SCH (22:54)
[2020-07-26] MEDS: GABAPENTIN 300 MG CAP PO SCH (22:59)
[2020-07-26] MEDS: FLUoxetine HCL 20 MG CAP PO SCH (23:00)
[2020-07-26] MEDS: TEMAZEPAM 15 MG CAP PO PRN (23:01)
[2020-07-26 23:12] VITALS: BP 135/50
[2020-07-27] MEDS: ALBUTEROL SULF 2.5 MG/0.5ML(0.5%) NEB SOLN NEB SCH ×4 (00:14→18:16)
[2020-07-27] MEDS: IPRATROPIUM BROM 0.5 MG/2.5ML INH SOL NEB SCH ×4 (00:14→18:16)
[2020-07-27 05:17] VITALS: BP 146/62
[2020-07-27 05:58] LABS: Calcium 8.4 mg/dL (8.5-10.1)
[2020-07-27 06:00] LABS: BUN/Creatinine Ratio 23.6
[2020-07-27] MEDS: cloNIDine HCL 0.1 MG TAB PO SCH ×3 (06:38→22:09)
[2020-07-27] MEDS: hydrALAZINE HCL 25 MG TAB PO SCH ×3 (06:38→22:08)
[2020-07-27] MEDS ORDERED: LEVOTHYROXINE SODIUM 112 MCG TAB PO SCH (07:00)
[2020-07-27 08:39] VITALS: BP 133/60
[2020-07-27] MEDS: ASPirin 81 mg TAB PO SCH (10:21)
[2020-07-27] MEDS: amLODIPine BESYLATE 5 MG TAB PO SCH (10:22)
[2020-07-27] MEDS: FLUoxetine HCL 20 MG CAP PO SCH ×2 (10:22→22:10)
[2020-07-27] MEDS: GABAPENTIN 300 MG CAP PO SCH ×2 (10:22→22:09)
[2020-07-27] MEDS: PANTOPRAZOLE 40 MG TAB PO SCH (10:22)
[2020-07-27] MEDS: ENOXAPARIN SOD 40 MG/0.4 ML SYRINGE SC SCH (10:23)
[2020-07-27] MEDS: MONTELUKAST SODIUM 10 MG TAB PO SCH (10:23)
[2020-07-27 13:00] VITALS: BP 157/68
[2020-07-27] MEDS: ACETAMINOPHEN 500 MG TAB PO PRN (15:41)
[2020-07-27 17:00] VITALS: BP 135/68
[2020-07-27 21:57] VITALS: BP 151/68
[2020-07-27] MEDS ORDERED: LORazepam 2MG/ML-1ML VIAL IV PRN (22:00)
[2020-07-27] MEDS: ATORVASTATIN 20 MG TAB PO SCH (22:09)
[2020-07-27] MEDS: TEMAZEPAM 15 MG CAP PO PRN (22:14)
[2020-07-27] MEDS: traMADol HCL 50 MG TAB PO PRN (22:15)
[2020-07-28 00:13] LABS: Cholesterol 129 mg/dL (< 200); HDL Cholesterol 57 mg/dL (40-59); LDL Cholesterol 52 mg/dL (< 100); Triglycerides 92 mg/dL (< 150)
[2020-07-28] MEDS: ALBUTEROL SULF 2.5 MG/0.5ML(0.5%) NEB SOLN NEB SCH ×4 (00:15→18:50)
[2020-07-28] MEDS: IPRATROPIUM BROM 0.5 MG/2.5ML INH SOL NEB SCH ×4 (00:16→18:50)
[2020-07-28 05:00] VITALS: BP 154/62
[2020-07-28 05:34] LABS: Basophils # (auto) 0 10 ^3/uL (0-0.2); Basophils % (auto) 0.5 % (0.0-2.0); Eosinophils # (auto) 0.1 10 ^3/uL (0-0.8); Eosinophils % (auto) 2.4 % (0.0-7.0); Hematocrit 35.8 % (36.0-46.0); Hemoglobin 12.2 g/dL (12.2-16.2); Lymphocytes # (auto) 1.1 10 ^3/uL (0.4-5.4); Lymphocytes % (auto) 24.4 % (10.0-50.0); Mean Corpuscular Hemoglobin 30.3 pg (28.0-32.0); Mean Corpuscular Hgb Conc. 34.1 g/dL (32.0-36.0); Mean Corpuscular Volume 88.7 fL (80.0-100.0); Monocytes # (auto) 0.5 10 ^3/uL (0-1.3); Monocytes % (auto) 11.7 % (0.0-12.0); Neutrophils # (auto) 2.7 10 ^3/uL (1.6-8.6); Nucleated Red Blood Cells % 0.1 %; Platelet Count (auto) 172 10^3/uL (140-450); Red Blood Cells 4.04 10^6/uL (4.0-5.20); Red Cell Distribution Width 14.8 % (11.8-14.3); White Blood Cell 4.4 10^3/uL (4.4-10.8)
[2020-07-28 06:01] LABS: Potassium 4.2 mmol/L (3.5-5.1)
[2020-07-28 06:10] LABS: Albumin 3.7 g/dL (3.4-5.0); BUN/Creatinine Ratio 20.2; Bilirubin, Total 0.4 mg/dL (0.2-1.0); Calcium 9.1 mg/dL (8.5-10.1)
[2020-07-28] MEDS: hydrALAZINE HCL 25 MG TAB PO SCH ×3 (06:54→22:59)
[2020-07-28] MEDS: LEVOTHYROXINE SODIUM 50 MCG TAB PO SCH (06:54)
[2020-07-28] MEDS: cloNIDine HCL 0.1 MG TAB PO SCH ×3 (06:54→22:59)
[2020-07-28 09:00] VITALS: BP 124/73
[2020-07-28] MEDS: amLODIPine BESYLATE 5 MG TAB PO SCH (10:19)
[2020-07-28] MEDS: PANTOPRAZOLE 40 MG TAB PO SCH (10:21)
[2020-07-28] MEDS: FLUoxetine HCL 20 MG CAP PO SCH ×2 (10:21→23:00)
[2020-07-28] MEDS: ASPirin 81 mg TAB PO SCH (10:21)
[2020-07-28] MEDS: GABAPENTIN 300 MG CAP PO SCH ×2 (10:21→23:00)
[2020-07-28] MEDS: ENOXAPARIN SOD 40 MG/0.4 ML SYRINGE SC SCH (10:22)
[2020-07-28] MEDS: MONTELUKAST SODIUM 10 MG TAB PO SCH (10:22)
[2020-07-28] MEDS: CHOLECALCIFEROL (VITD3) 2,000 UNIT CAP/TAB PO SCH (10:22)
[2020-07-28 13:00] VITALS: BP 102/70
[2020-07-28] MEDS: traMADol HCL 50 MG TAB PO PRN ×2 (15:17→21:01)
[2020-07-28 17:00] VITALS: BP 137/73
[2020-07-28] MEDS: TEMAZEPAM 15 MG CAP PO PRN (21:01)
[2020-07-28 22:00] VITALS: BP 131/68
[2020-07-28] MEDS: ATORVASTATIN 20 MG TAB PO SCH (22:59)
[2020-07-29] MEDS: IPRATROPIUM BROM 0.5 MG/2.5ML INH SOL NEB SCH ×4 (00:01→19:18)
[2020-07-29] MEDS: ALBUTEROL SULF 2.5 MG/0.5ML(0.5%) NEB SOLN NEB SCH ×4 (00:01→19:18)
[2020-07-29 05:00] VITALS: BP 139/57
[2020-07-29] MEDS: cloNIDine HCL 0.1 MG TAB PO SCH ×4 (05:45→21:37)
[2020-07-29] MEDS: hydrALAZINE HCL 25 MG TAB PO SCH ×3 (05:45→21:37)
[2020-07-29] MEDS: LEVOTHYROXINE SODIUM 50 MCG TAB PO SCH (05:46)
[2020-07-29] MEDS: traMADol HCL 50 MG TAB PO PRN (05:46)
[2020-07-29 07:46] LABS: Basophils # (auto) 0 10 ^3/uL (0-0.2); Basophils % (auto) 0.8 % (0.0-2.0); Eosinophils # (auto) 0.2 10 ^3/uL (0-0.8); Eosinophils % (auto) 3.5 % (0.0-7.0); Hematocrit 37.6 % (36.0-46.0); Hemoglobin 12.5 g/dL (12.2-16.2); Lymphocytes # (auto) 1.7 10 ^3/uL (0.4-5.4); Lymphocytes % (auto) 34.3 % (10.0-50.0); Mean Corpuscular Hgb Conc. 33.4 g/dL (32.0-36.0); Monocytes # (auto) 0.4 10 ^3/uL (0-1.3); Monocytes % (auto) 7.7 % (0.0-12.0); Neutrophils # (auto) 2.7 10 ^3/uL (1.6-8.6); Neutrophils % (auto) 53.7 % (37.0-80.0); Nucleated Red Blood Cells % 0.1 %; Platelet Count (auto) 189 10^3/uL (140-450); Red Blood Cells 4.17 10^6/uL (4.0-5.20); Red Cell Distribution Width 15.1 % (11.8-14.3); White Blood Cell 5.1 10^3/uL (4.4-10.8)
[2020-07-29 07:59] LABS: BUN/Creatinine Ratio 19.8; Calcium 9.1 mg/dL (8.5-10.1); Potassium 3.6 mmol/L (3.5-5.1)
[2020-07-29 09:00] VITALS: BP 156/70
[2020-07-29 09:47] VITALS: BP 132/55
[2020-07-29] MEDS: GABAPENTIN 300 MG CAP PO SCH ×2 (09:59→21:38)
[2020-07-29] MEDS: amLODIPine BESYLATE 5 MG TAB PO SCH (09:59)
[2020-07-29] MEDS: PANTOPRAZOLE 40 MG TAB PO SCH (09:59)
[2020-07-29] MEDS: ASPirin 81 mg TAB PO SCH (09:59)
[2020-07-29] MEDS: MONTELUKAST SODIUM 10 MG TAB PO SCH (09:59)
[2020-07-29] MEDS: FLUoxetine HCL 20 MG CAP PO SCH ×2 (09:59→21:38)
[2020-07-29] MEDS: CHOLECALCIFEROL (VITD3) 2,000 UNIT CAP/TAB PO SCH (10:00)
[2020-07-29] MEDS: ENOXAPARIN SOD 40 MG/0.4 ML SYRINGE SC SCH (10:00)
[2020-07-29] MEDS: ACETAMINOPHEN 500 MG TAB PO PRN ×2 (10:01→17:23)
[2020-07-29 13:00] VITALS: BP 157/74
[2020-07-29 16:35] VITALS: BP 141/71
[2020-07-29] MEDS: LACTULOSE 20Gm/30ML SOLN PO PRN (17:23)
[2020-07-29] MEDS: TEMAZEPAM 15 MG CAP PO PRN (21:38)
[2020-07-29] MEDS: ATORVASTATIN 20 MG TAB PO SCH (21:38)
[2020-07-29 22:16] VITALS: BP 143/52
[2020-07-30] MEDS: ALBUTEROL SULF 2.5 MG/0.5ML(0.5%) NEB SOLN NEB SCH ×4 (00:28→18:54)
[2020-07-30] MEDS: IPRATROPIUM BROM 0.5 MG/2.5ML INH SOL NEB SCH ×4 (00:28→18:53)
[2020-07-30 05:30] VITALS: BP 108/55
[2020-07-30] MEDS: hydrALAZINE HCL 25 MG TAB PO SCH ×3 (06:09→22:04)
[2020-07-30] MEDS: cloNIDine HCL 0.1 MG TAB PO SCH ×3 (06:09→22:00)
[2020-07-30] MEDS: LEVOTHYROXINE SODIUM 50 MCG TAB PO SCH (06:09)
[2020-07-30 08:32] LABS: Basophils # (auto) 0 10 ^3/uL (0-0.2); Basophils % (auto) 0.9 % (0.0-2.0); Eosinophils # (auto) 0.2 10 ^3/uL (0-0.8); Eosinophils % (auto) 3.6 % (0.0-7.0); Hematocrit 35.9 % (36.0-46.0); Hemoglobin 12.2 g/dL (12.2-16.2); Lymphocytes # (auto) 1.4 10 ^3/uL (0.4-5.4); Lymphocytes % (auto) 26.6 % (10.0-50.0); Mean Corpuscular Hemoglobin 30.2 pg (28.0-32.0); Mean Corpuscular Volume 88.8 fL (80.0-100.0); Monocytes # (auto) 0.5 10 ^3/uL (0-1.3); Monocytes % (auto) 9.3 % (0.0-12.0); Neutrophils # (auto) 3.1 10 ^3/uL (1.6-8.6); Neutrophils % (auto) 59.6 % (37.0-80.0); Platelet Count (auto) 184 10^3/uL (140-450); Red Blood Cells 4.05 10^6/uL (4.0-5.20); White Blood Cell 5.3 10^3/uL (4.4-10.8)
[2020-07-30 08:53] LABS: Potassium 4.5 mmol/L (3.5-5.1)
[2020-07-30 09:00] VITALS: BP 140/68
[2020-07-30 09:00] LABS: Albumin 3.6 g/dL (3.4-5.0); Bilirubin, Total 0.5 mg/dL (0.2-1.0); Total Protein 6.9 g/dL (6.4-8.2)
[2020-07-30] MEDS: ASPirin 81 mg TAB PO SCH (10:46)
[2020-07-30] MEDS: GABAPENTIN 300 MG CAP PO SCH ×2 (10:46→22:05)
[2020-07-30] MEDS: MONTELUKAST SODIUM 10 MG TAB PO SCH (10:50)
[2020-07-30] MEDS: ENOXAPARIN SOD 40 MG/0.4 ML SYRINGE SC SCH (10:50)
[2020-07-30] MEDS: FLUoxetine HCL 20 MG CAP PO SCH ×2 (10:50→22:05)
[2020-07-30] MEDS: CHOLECALCIFEROL (VITD3) 2,000 UNIT CAP/TAB PO SCH (10:50)
[2020-07-30] MEDS: amLODIPine BESYLATE 5 MG TAB PO SCH (10:50)
[2020-07-30] MEDS: PANTOPRAZOLE 40 MG TAB PO SCH (10:50)
[2020-07-30] MEDS: ACETAMINOPHEN 500 MG TAB PO PRN (10:51)
[2020-07-30] MEDS: LACTULOSE 20Gm/30ML SOLN PO PRN ×2 (10:51→23:19)
[2020-07-30 12:55] VITALS: BP 129/83
[2020-07-30 13:07] LABS: Folate (Folic Acid) 15.63 ng/mL (5.38-24)
[2020-07-30 17:00] VITALS: BP 137/66
[2020-07-30 22:00] VITALS: BP 162/77
[2020-07-30] MEDS: ATORVASTATIN 20 MG TAB PO SCH (22:05)
[2020-07-30] MEDS: TEMAZEPAM 15 MG CAP PO PRN (23:20)
[2020-07-31] VITALS (8 sets, daily range): BP systolic 117–134; BP diastolic 45–66
[2020-07-31] MEDS: IPRATROPIUM BROM 0.5 MG/2.5ML INH SOL NEB SCH ×3 (00:02→12:00)
[2020-07-31] MEDS: ALBUTEROL SULF 2.5 MG/0.5ML(0.5%) NEB SOLN NEB SCH ×3 (00:02→12:00)
[2020-07-31 05:42] LABS: Potassium 4.2 mmol/L (3.5-5.1)
[2020-07-31 05:50] LABS: BUN/Creatinine Ratio 25.2
[2020-07-31] MEDS: hydrALAZINE HCL 25 MG TAB PO SCH ×2 (05:53→16:02)
[2020-07-31] MEDS: LEVOTHYROXINE SODIUM 50 MCG TAB PO SCH (05:53)
[2020-07-31] MEDS: cloNIDine HCL 0.1 MG TAB PO SCH (05:53)
[2020-07-31] MEDS: ACETAMINOPHEN 500 MG TAB PO PRN (06:36)
[2020-07-31] MEDS: MONTELUKAST SODIUM 10 MG TAB PO SCH (09:00)
[2020-07-31] MEDS: GABAPENTIN 300 MG CAP PO SCH (09:00)
[2020-07-31] MEDS: amLODIPine BESYLATE 5 MG TAB PO SCH (09:00)
[2020-07-31] MEDS: ENOXAPARIN SOD 40 MG/0.4 ML SYRINGE SC SCH (09:00)
[2020-07-31] MEDS: FLUoxetine HCL 20 MG CAP PO SCH (09:00)
[2020-07-31] MEDS: CHOLECALCIFEROL (VITD3) 2,000 UNIT CAP/TAB PO SCH (09:00)
[2020-07-31] MEDS: PANTOPRAZOLE 40 MG TAB PO SCH (09:00)
[2020-07-31] MEDS: ASPirin 81 mg TAB PO SCH (09:00)
[2020-07-31] MEDS: LACTULOSE 20Gm/30ML SOLN PO PRN (09:10)
[2020-07-31] MEDS ORDERED: ADENOSINE 62 MG in GIVE UN-DILUTED 0 ML IV STA (09:27)
[2020-07-31] MEDS ORDERED: HYDR25TA87 PO (14:19)
[2020-07-31] MEDS ORDERED: POLY33504 PO (14:20)
== END 2020-07-31 18:27 | disposition home health service (06) | DRG 201 ==
LOC: ER 08:17 → TELE 10:52 → TELE-WESTW 17:25
PROVIDERS: ADMIT Internal Medicine; ATTEND Internal Medicine
PROC: 3E1H78Z Irrigation of Lower GI using Irrigating Substance, Via Natural or Artificial Opening (ICD-10-PCS; principal; 2020-07-31)
DX: R00.1 Bradycardia, unspecified (principal); N17.0 Acute kidney failure with tubular necrosis; G93.41 Metabolic encephalopathy; F20.9 Schizophrenia, unspecified; M41.9 Scoliosis, unspecified; J44.9 Chronic obstructive pulmonary disease, unspecified; J45.909 Unspecified asthma, uncomplicated; E03.9 Hypothyroidism, unspecified; I70.90 Unspecified atherosclerosis; E78.5 Hyperlipidemia, unspecified; F32.9 Major depressive disorder, single episode, unspecified; F41.9 Anxiety disorder, unspecified; I12.9 Hypertensive chronic kidney disease with stage 1 through stage 4 chronic kidney disease, or unspecified chronic kidney disease; M47.9 Spondylosis, unspecified; M54.5 Low back pain; M51.36 Other intervertebral disc degeneration, lumbar region; Z20.822 Contact with and (suspected) exposure to COVID-19; F03.90 Unspecified dementia, unspecified severity, without behavioral disturbance, psychotic disturbance, mood disturbance, and anxiety; R62.7 Adult failure to thrive; M48.00 Spinal stenosis, site unspecified; I16.0 Hypertensive urgency; S40.011A Contusion of right shoulder, initial encounter; K59.00 Constipation, unspecified; W18.39XA Other fall on same level, initial encounter; Z79.82 Long term (current) use of aspirin; Z79.899 Other long term (current) drug therapy; Z82.49 Family history of ischemic heart disease and other diseases of the circulatory system; Z86.73 Personal history of transient ischemic attack (TIA), and cerebral infarction without residual deficits; Z88.5 Allergy status to narcotic agent; Z88.8 Allergy status to other drugs, medicaments and biological substances; Z90.49 Acquired absence of other specified parts of digestive tract; Z68.27 Body mass index [BMI] 27.0-27.9, adult; Y93.89 Activity, other specified; Y92.89 Other specified places as the place of occurrence of the external cause; Y99.8 Other external cause status; T46.5X5A Adverse effect of other antihypertensive drugs, initial encounter; N18.31 Chronic kidney disease, stage 3a
CPT/HCPCS: 36415; 70450; 70551; 71045; 72131; 72192; 73030; 78452; 80048; 80053; 80061; 81001; 82550; 82607; 82746; 83735; 83880; 84439; 84443; 84484; 85025; 85610; 85652; 85730; 86038; 86141; 86431; 87426; 93005; 93017; 93306; 93886; 94640; 95819; 96360; 96361; 97110; 97116; 97163; 97530; 99291; G0378; J0153